=== PATIENT | female | born 1985 | race African-American/Black ===

== ENCOUNTER 2018-02-27 13:20 | Outpatient (CLI) | payer OTHER ==
[~2018-02-27 13:20] MED LIST: IRON325 M1 PO; PRENATAL TABLE1 EAC3 PO; TYLENOL EXTRA500 MG PO
[2018-02-27 13:54] VITALS: BP 105/68
[2018-02-27] MEDS ORDERED: METROGEL-VAGINA70 GM VG (16:06)
== END 2018-02-27 17:30 | disposition home or self-care (01) ==
LOC: EME 13:20 → EDSTATUS 13:34 → LDRP-OP 13:36 → 2WEST 13:37
DX: O26.892 Other specified pregnancy related conditions, second trimester (principal); R10.2 Pelvic and perineal pain; O23.592 Infection of other part of genital tract in pregnancy, second trimester; B96.89 Other specified bacterial agents as the cause of diseases classified elsewhere; N76.0 Acute vaginitis; O99.612 Diseases of the digestive system complicating pregnancy, second trimester; K21.9 Gastro-esophageal reflux disease without esophagitis; Z3A.25 25 weeks gestation of pregnancy
CPT/HCPCS: 59025; G0378